=== PATIENT | female | born 1950 | race Caucasian/White ===

== ENCOUNTER 2017-12-31 18:25 | Observation (INO) | payer MEDICARE ==
[~2017-12-31] VITALS: Ht 172.7 cm; Wt 100.0 kg
[2017-12-31 18:37] VITALS: BP 157/83; PULSE 83; TEMP 98.4; O2SAT 97
--- NOTE | 2017-12-31 22:23 | PD ---
HPI Chief Complaint: Injury Time Seen by Provider: 22:15 Travel History International Travel<30 days: No Contact w/Intl Traveler<30days: No Traveled to known affect area: No History of Present Illness HPI 59-year-old female presents with her for evaluation of left knee injury. Symptom onset 3 PM. She reports that she twisted her left knee in [place]uddle at the beach. She fell and landed on her left knee. Pain is throbbing, constant, worse with movement. She has had difficulty putting weight on her left leg. No alleviating factors. She reports that she felt a tearing sensation when she fell. She denies any other injuries and she has no other complaints at this time. [facility] Social History Alcohol Use: Yes Tobacco Use: No Allergies-Medications (Allergen,Severity, Reaction): Coded Allergies: KEV Inhibitors (Verified Allergy, Unknown, 01/01/18) Penicillins (Verified Allergy, Unknown, 12/31/17) erythromycin base (Verified Allergy, Unknown, 01/01/18) iodine (Verified Allergy, Unknown, 12/31/17) Reported Meds & Prescriptions Reported Meds & Active Scripts Active Walker with Front Wheels (Device) 1 Mis Mis Ea .XX DIRECTED Ibuprofen 800 Mg Tab 800 Mg PO Q6HR PRN Tylenol-Codeine #3 (Acetaminophen-Codeine) 300-30 mg Tab 1 Tab PO Q6H PRN Reported Diltiazem (Diltiazem HCl) 120 Mg Tab 120 Mg PO DAILY Lasix (Furosemide) 20 Mg Tab 20 Mg PO DAILY Multiple Vitamin 1 Tab 1 Tab PO DAILY Atorvastatin (Atorvastatin Calcium) 80 Mg Tab 80 Mg PO HS Aspirin 81 Mg Chew 162 Mg CHEW ONCE Effexor (Venlafaxine HCl) 100 Mg Tab 150 Mg PO Q12H [Atarax] 25 Mg PO TID Review of Systems General / Constitutional: No: Fever, Chills Musculoskeletal: Positive: Limited ROM, Pain Skin: Positive Other (Denies open wounds) Neurologic: No: Paresthesia Physical Exam Narrative GENERAL: Well-developed well-nourished female no acute distress SKIN: Warm and dry. CARDIOVASCULAR: Regular rate and rhythm. No murmur appreciated. RESPIRATORY: No accessory muscle use. Clear to auscultation. Breath sounds equal bilaterally. MUSCULOSKELETAL: There appears to be a left knee joint effusion. There is generalized tenderness to palpation the left knee. The patient is holding her left knee in extension. There is pain with passive and active attempts at flexion of the left knee. Distal pulses and sensation are intact. NEUROLOGICAL: Awake and alert. No obvious cranial nerve deficits. Motor grossly within normal limits. Normal speech. Data Data Last Documented VS Vital Signs Date Time Temp Pulse Resp B/P (MAP) Pulse Ox O2 Delivery O2 Flow Rate FiO2 01/01/18 01:36 99 Nasal Cannula 2.00 01/01/18 01:22 62 20 156/80 (105) 12/31/17 18:37 98.4 Orders Orders Knee, Complete (4vws) (12/31/17 ) Ice/Cold Pack (12/31/17 22:20) Acetamin-Codeine 300-30 Mg (Tylenol-Code (12/31/17 22:30) Ibuprofen (Motrin) (12/31/17 22:30) Ct Knee W/O Contrast (12/31/17 ) Radiology Film Requests (01/01/18 ) Splint Or Brace Apply/Monitor (01/01/18 00:08) Radiology Film Requests (01/01/18 ) Immobilizer Knee 20 Inch (01/01/18 ) Orphenadrine Inj (Norflex Inj) (01/01/18 00:30) Electrocardiogram (01/01/18 00:38) Basic Metabolic Panel (Bmp) (01/01/18 00:38) Ckmb (Isoenzyme) Profile (01/01/18 00:38) Complete Blood Count With Diff (01/01/18 00:38) Magnesium (Mg) (01/01/18 00:38) Prothrombin Time / Inr (Pt) (01/01/18 00:38) Act Partial Throm Time (Ptt) (01/01/18 00:38) Troponin I (01/01/18 00:38) Ecg Monitoring (01/01/18 00:38) Bilateral Bp Monitoring (01/01/18 00:38) Iv Access Insert/Monitor (01/01/18 00:38) Oximetry (01/01/18 00:38) Oxygen Administration (01/01/18 00:38) Aspirin (Aspirin) (01/01/18 00:45) Morphine Inj (Morphine Inj) (01/01/18 00:45) Sodium Chloride 0.9% Flush (Ns Flush) (01/01/18 00:45) Nitroglycerin Sl (Nitrostat Sl) (01/01/18 00:45) Ondansetron Odt (Zofran Odt) (01/01/18 00:45) Chest, Single Ap (01/01/18 ) Sodium Chlorid 0.9% 500 Ml Inj (Ns 500 M (01/01/18 01:15) Admit Order (Ed Use Only) (01/01/18 01:45) Activity Bed Rest With Brp (01/01/18 01:45) Vital Signs (Adult) Q4H (01/01/18 01:45) Cardiac Rhythm .As Directed (01/01/18 01:45) Notify Dr: Other .PRN (01/01/18 01:45) Notify Parameters (01/01/18 01:45) Resp Oxygen Nasal Cannula (01/01/18 ) Ckmb (Isoenzyme) Profile (01/01/18 03:45) Ckmb (Isoenzyme) Profile (01/01/18 06:45) Troponin I (01/01/18 03:45) Troponin I (01/01/18 06:45) Electrocardiogram (01/01/18 03:45) Electrocardiogram (01/01/18 06:45) ^ Obtain (01/01/18 01:45) Sodium Chloride 0.9% Flush (Ns Flush) (01/01/18 01:45) Sodium Chloride 0.9% Flush (Ns Flush) (01/01/18 09:00) Npo After Midnight W/ Po Meds (01/01/18 Breakfast) Nitroglycerin 2% Oint (Nitroglycerin 2% (01/01/18 01:45) Labs Laboratory Tests Test 01/01/18 00:45 White Blood Count 8.8 TH/MM3 Red Blood Count 4.11 MIL/MM3 Hemoglobin 12.7 GM/DL Hematocrit 37.6 % Mean Corpuscular Volume 91.6 FL Mean Corpuscular Hemoglobin 30.9 PG Mean Corpuscular Hemoglobin Concent 33.7 % Red Cell Distribution Width 17.5 % Platelet Count 476 TH/MM3 Mean Platelet Volume 7.2 FL Neutrophils (%) (Auto) 70.6 % Lymphocytes (%) (Auto) 21.3 % Monocytes (%) (Auto) 5.8 % Eosinophils (%) (Auto) 1.8 % Basophils (%) (Auto) 0.5 % Neutrophils # (Auto) 6.2 TH/MM3 Lymphocytes # (Auto) 1.9 TH/MM3 Monocytes # (Auto) 0.5 TH/MM3 Eosinophils # (Auto) 0.2 TH/MM3 Basophils # (Auto) 0.0 TH/MM3 CBC Comment DIFF FINAL Differential Comment Prothrombin Time 11.5 SEC Prothromb Time International Ratio 1.1 RATIO Activated Partial Thromboplast Time 27.5 SEC Blood Urea Nitrogen 15 MG/DL Creatinine 0.79 MG/DL Random Glucose 103 MG/DL Calcium Level 8.9 MG/DL Magnesium Level 2.0 MG/DL Sodium Level 142 MEQ/L Potassium Level 3.7 MEQ/L Chloride Level 105 MEQ/L Carbon Dioxide Level 27.9 MEQ/L Anion Gap 9 MEQ/L Estimat Glomerular Filtration Rate 72 ML/MIN Total Creatine Kinase 66 U/L Troponin I LESS THAN 0.02 NG/ML MDM Medical Decision Making Medical Screen Exam Complete: Yes Emergency Medical Condition: Yes Medical Record Reviewed: Yes Differential Diagnosis Ligamentous disruption, meniscal disruption, tibial plateau fracture, proximal fibular fracture, contusion, patellar dislocation Narrative Course 67-year-old female presents with left knee pain after twisting her left knee and falling at the beach today. X-ray imaging will be obtained. Ice pack provided. The patient will be given Tylenol with codeine and ibuprofen. X-ray imaging suspicious for medial tibial plateau fracture. Therefore CT imaging was obtained revealing CONCLUSION: 1. Nondisplaced fracture of the medial aspect of the medial tibial plateau. Patient was given a copy of her x-ray and CT on a CD. She was also given the radiology reports. She was placed in a knee immobilizer. She is declining crutches and would prefer a walker. She will be given a prescription for a walker. She has an orthopedic physician that she follows with in [place], she will follow-up with him in the next week. 0035: Just before discharge the patient began developing substernal chest pain. She describes it as a pressure which is constant, nonradiating, associated with diaphoresis, nausea, dyspnea. No personal history of coronary disease. She does have a history of lupus, hypertension, hyperlipidemia, family history of MA on the father's side at age 53. A 12 EKG was immediately obtained. The patient was given nitroglycerin, aspirin, morphine, placed on ECG monitoring pulse oximetry. Lab work, chest x-ray been ordered. The patient reports improvement in her pain with nitroglycerin. Her initial lab work is reassuring. Her EKG revealed sinus rhythm with some T-wave inversions in the inferior leads. At this point time the plan is to admit her into the chest pain center for serial cardiac enzymes and rule out purposes. She is agreeable. Diagnosis Primary Impression: Tibial plateau fracture, left Additional Impression: Chest pain Admitting Information Admitting Physician Requests: Observation Referrals: Orthopedist Med/Other Pt SpecificInfo: Prescription(s) given, Orthopedic Instructions Scripts Walker with Front Wheels (Walker with Front Wheels) 1 Mis Mis EA .XX DIRECTED, #1 0 Refills Prov: Sara Evans DO 12/31/17 Ibuprofen (Ibuprofen) 800 Mg Tab 800 MG PO Q6HR Y for PAIN, #40 TAB 0 Refills Prov: Sara Evans DO 12/31/17 Acetaminophen-Codeine (Tylenol-Codeine #3) 300-30 mg Tab 1 TAB PO Q6H Y for PAIN, #12 TAB 0 Refills Prov: Sara Evans DO 12/31/17 Disposition: 01 DISCHARGE HOME Condition: Stable Jhony Bojorquez Dec 31, 2017 22:23
[2017-12-31] MEDS ORDERED: TYLETAB34 PO (22:24)
[2017-12-31] MEDS ORDERED: WALKER WHEELS/F1 MIS (22:24)
[2017-12-31] MEDS ORDERED: IBUP1TAB7 PO (22:24)
[2017-12-31] MEDS ORDERED: IBUPROFEN 800 MG TAB PO ONE (22:30)
[2017-12-31] MEDS ORDERED: ACETAMINOPHEN/CODEINE 300 MG/30 MG TAB PO ONE (22:30)
--- NOTE | 2017-12-31 23:02 | RADRPT ---
EXAM DATE: 12/31/2017 10:55 PM EDT AGE/SEX: 67 years / Female INDICATIONS: Left knee pain post fall today CLINICAL DATA: This is the patient's initial encounter. Patient reports that signs and symptoms have been present for 1 day and indicates a pain score of 8/10. MEDICAL/SURGICAL HISTORY: None. None. COMPARISON: No prior exams available for comparison. FINDINGS: There is a lipohemarthrosis suggesting a fracture at the knee. Questionable nondisplaced tibial plate au fracture noted medially. No other fractures are seen. CONCLUSION: 1. Lipohemarthrosis with questionable hairline nondisplaced fracture medial tibial plateau. Electronically signed by: Brien Moreno MD 12/31/2017 11:01 PM EDT
[2018-01-01] VITALS (7 sets, daily range): BP systolic 124–156; BP diastolic 67–80; PULSE 61–94; RESP 17–20; TEMP 96.8–98; O2SAT 90–99
--- NOTE | 2018-01-01 00:05 | RADRPT ---
EXAM DATE: 12/31/2017 11:48 PM EDT AGE/SEX: 67 years / Female INDICATIONS: Trauma, fall forward. Abnormal radiograph. CLINICAL DATA: This is the patient's initial encounter. Patient reports that signs and symptoms have been present for 1 day and indicates a pain score of 7/10. MEDICAL/SURGICAL HISTORY: None. . RADIATION DOSE: 16.57 CTDI (mGy) COMPARISON: No prior exams available for comparison. TECHNIQUE: Multiple contiguous axial images were acquired using a multirow detector CT scanner witho ut contrast. Multiplanar reconstruction was performed in the sagittal and coronal planes. Using aut omated exposure control and adjustment of the mA and/or kV according to patient size, radiation dose was kept as low as reasonably achievable to obtain optimal diagnostic quality images. FINDINGS: Bones: Nondisplaced fracture of the medial aspect of the medial tibial plateau. No other fractures. Mild degenerative changes. Joints: No significant arthropathy or bony hypertrophy is seen. Soft Tissues: No soft tissue mass is seen. Other: No foreign bodies seen. Likely hemarthrosis. CONCLUSION: 1. Nondisplaced fracture of the medial aspect of the medial tibial plateau. Electronically signed by: Anuj Shanks MD 01/01/2018 12:03 AM EDT
[2018-01-01] MEDS ORDERED: ORPHENADRINE INJ 60 MG/2 ML AMP IM ONE (00:30)
[2018-01-01] MEDS ORDERED: ASPIRIN 325 MG TAB PO ONE (00:45)
[2018-01-01] MEDS ORDERED: SODIUM CHLORIDE 0.9% FLUSH 10 ML FLUSH IVF PRN (00:45)
[2018-01-01] MEDS ORDERED: ONDANSETRON ODT 4 MG TAB PO ONE (00:45)
[2018-01-01] MEDS ORDERED: MORPHINE SULFATE 4 MG/ML INJ IV PUSH ONE (00:45)
[2018-01-01] MEDS: NITROGLYCERIN 0.4 MG SL 25 TABS/BTL SL SCH ×3 (00:47→01:02)
--- NOTE | 2018-01-01 01:07 | RADRPT ---
EXAM DATE: 01/01/2018 1:01 AM EDT AGE/SEX: 67 years / Female INDICATIONS: Chest pain radiating to the back. CLINICAL DATA: This is the patient's initial encounter. Patient reports that signs and symptoms have been present for 1 day and indicates a pain score of 5/10. MEDICAL/SURGICAL HISTORY: None. None. COMPARISON: No prior exams available for comparison. FINDINGS: A single AP view of the chest demonstrates the lungs to be symmetrically aerated without evidence of mass, infiltrate or effusion. Moderate-sized hiatal hernia. The cardiomediastinal contours are unrema rkable. Osseous structures are intact. CONCLUSION: No acute cardiopulmonary disease. Hiatal hernia. Electronically signed by: Anuj Shanks MD 01/01/2018 1:06 AM EDT
[2018-01-01 01:08] LABS: AUTOMATED NEUTROPHIL # 6.2 TH/MM3 (1.8-7.7); BASOPHIL % 0.5 % (0.0-2.0); EOSINOPHIL # 0.2 TH/MM3 (0-0.4); EOSINOPHIL % 1.8 % (0.0-4.0); HEMATOCRIT 37.6 % (35.0-46.0); HEMOGLOBIN 12.7 GM/DL (11.6-15.3); LYMPH % 21.3 % (9.0-44.0); LYMPHOCYTE # 1.9 TH/MM3 (1.0-4.8); MEAN CELL VOLUME 91.6 FL (80.0-100.0); MEAN CORPUSCULAR HEMOGLOBIN 30.9 PG (27.0-34.0); MEAN CORPUSCULAR HGB CONC 33.7 % (32.0-36.0); MEAN PLATELET VOLUME 7.2 FL (7.0-11.0); MONO % 5.8 % (0.0-8.0); MONOCYTE # 0.5 TH/MM3 (0-0.9); NEUT % 70.6 % (16.0-70.0); PLATELET COUNT 476 TH/MM3 (150-450); RED BLOOD COUNT 4.11 MIL/MM3 (4.00-5.30); RED CELL DISTRIBUTION WIDTH 17.5 % (11.6-17.2); WHITE BLOOD COUNT 8.8 TH/MM3 (4.0-11.0)
[2018-01-01 01:12] LABS: INTERNATIONAL NORMALIZED RATIO 1.1 RATIO; PROTHROMBIN TIME - PATIENT 11.5 SEC (9.8-11.6)
[2018-01-01] MEDS ORDERED: SODIUM CHLORID 0.9% 500 ML INJ 500 ML IV ONE (01:15)
[2018-01-01 01:33] LABS: BICARBONATE 27.9 MEQ/L (21.0-32.0); BLOOD UREA NITROGEN 15 MG/DL (7-18); CALCIUM 8.9 MG/DL (8.5-10.1); CHLORIDE 105 MEQ/L (98-107); CREATININE 0.79 MG/DL (0.50-1.00); GLOMERULAR FILTRATION RATE 72 ML/MIN (>89); GLUCOSE,RANDOM 103 MG/DL (74-106); SODIUM (NA) 142 MEQ/L (136-145)
[2018-01-01] MEDS ORDERED: VENL100T PO (01:35)
[2018-01-01] MEDS ORDERED: MULTTAB67 PO (01:35)
[2018-01-01] MEDS ORDERED: ATOR80TA45 PO (01:35)
[2018-01-01] MEDS ORDERED: ASPI-516 CHEW (01:35)
[2018-01-01] MEDS ORDERED: ATARAX PO (01:35)
[2018-01-01] MEDS ORDERED: FURO1TAB62 PO (01:35)
[2018-01-01] MEDS ORDERED: DILT120T PO (01:35)
[2018-01-01 01:37] LABS: TROPONIN I LESS THAN 0.02 NG/ML (0.02-0.05)
[2018-01-01] MEDS ORDERED: NITROGLYCERIN 2% OINT 1 GM PACKET TOP ONE (01:45)
[2018-01-01] MEDS ORDERED: SODIUM CHLORIDE 0.9% FLUSH 10 ML FLUSH IV FLUSH PRN (01:45)
[2018-01-01 04:09] LABS: TROPONIN I LESS THAN 0.02 NG/ML (0.02-0.05)
[2018-01-01 07:37] LABS: TROPONIN I LESS THAN 0.02 NG/ML (0.02-0.05)
[2018-01-01] MEDS ORDERED: NITROGLYCERIN 0.4 MG SL 25 TABS/BTL SL PRN (08:15)
[2018-01-01] MEDS ORDERED: ACETAMINOPHEN 500 MG CPLT PO PRN (08:15)
[2018-01-01] MEDS ORDERED: ONDANSETRON ODT 4 MG TAB PO PRN (08:15)
[2018-01-01] MEDS ORDERED: SODIUM CHLORIDE 0.9% FLUSH 10 ML FLUSH IV FLUSH SCH (09:00)
[2018-01-01] MEDS ORDERED: ASPIRIN 325 MG TAB PO SCH (09:00)
[2018-01-01] MEDS: ACETAMINOPHEN/CODEINE 300 MG/30 MG TAB PO PRN ×2 (09:23→17:59)
--- NOTE | 2018-01-01 12:18 | HHI.HP ---
HPI Primary Care Physician Non-Staff Chief Complaint Chest pain History of Present Illness 67-year-old female with history of lupus, hypertension, lipidemia, and sleep apnea presents emergency room for further evaluation of chest pain. Onset yesterday evening prior to discharge. Originally came to ER s/p falling at the beach. Diagnosed with a nondisplaced, hairline fracture of left medial tibia. While begin discharged developed generalized chest discomfort. Characterized as a burning, pressure. Radiation to right upper back. Severity 8/10. Associated symptoms included nausea, dyspnea, and diaphoresis. No particular movement or position made pain better or worse. Did not hurt to take a deep breath. Duration unknown, stating "maybe one hour." No precipitating factors. Relieving factors after third dose of nitroglycerin, reporting relief quickly after third dose. No further chest discomfort overnight. Denies similar pain in the past. She is visiting from [place], [place]. Does not remember events prior to falling, only remembers waking up on the ground. Review of Systems General: No fatigue, weakness, fever, chills, or recent illness. Has been under general state of health, recent lumbar surgery April 2017 states she has recovered well and continues working with PT. HEENT: No AWAD, no vision changes, no nasal congestion or drainage, no dysphasia CV: As stated above. No further chest discomfort since initial episode. RESP: No SOB, cough, wheeze, or recent URI. GI: No nausea, vomiting, or bowel changes. : No dysuria, urgency, frequency EXT: No lower leg edema, no paraesthesias MS: Current left knee injury status post fall 12/31/17, instructed to follow with orthopedist once returning home, brace provided in ER. NEURO: No dizziness, LOC, motor/sensory deficits PSYCH: No anxiety, depression, or suicidal ideation SKIN: No rashes, no concerning lesions Past Family Social History Allergies: Coded Allergies: KEV Inhibitors (Verified Allergy, Unknown, 01/01/18) Penicillins (Verified Allergy, Unknown, 12/31/17) erythromycin base (Verified Allergy, Unknown, 01/01/18) iodine (Verified Allergy, Unknown, 12/31/17) Past Medical History Hypertension, hyperlipidemia, sleep apnea (uses CPAP), lupus, Rene's esophagus, osteopenia, cervical dysplasia Past Surgical History Lumbar surgery (April 2017), partial hysterectomy, splenectomy Reported Medications Reported Meds & Active Scripts Active Walker with Front Wheels (Device) 1 Mis Mis Ea .XX DIRECTED Ibuprofen 800 Mg Tab 800 Mg PO Q6HR PRN Tylenol-Codeine #3 (Acetaminophen-Codeine) 300-30 mg Tab 1 Tab PO Q6H PRN Reported Diltiazem (Diltiazem HCl) 120 Mg Tab 120 Mg PO DAILY Lasix (Furosemide) 20 Mg Tab 20 Mg PO DAILY Multiple Vitamin 1 Tab 1 Tab PO DAILY Atorvastatin (Atorvastatin Calcium) 80 Mg Tab 80 Mg PO HS Aspirin 81 Mg Chew 162 Mg CHEW ONCE Effexor (Venlafaxine HCl) 100 Mg Tab 150 Mg PO Q12H [Atarax] 25 Mg PO TID Active Ordered Medications Current Medications Medications (Trade) Dose Ordered Sig/Cecilia Route Start Time Stop Time Status Last Admin (NS Flush) 2 ml UNSCH PRN IVF 01/01/18 00:45 (NS Flush) 2 ml UNSCH PRN IV FLUSH 01/01/18 01:45 (NS Flush) 2 ml BID IV FLUSH 01/01/18 09:00 (Tylenol) 500 mg Q4H PRN PO 01/01/18 08:15 (Nitrostat Sl) 0.4 mg Q5M PRN SL 01/01/18 08:15 (Aspirin) 325 mg DAILY PO 01/01/18 09:00 01/01/18 09:23 (Zofran Odt) 4 mg Q6H PRN PO 01/01/18 08:15 (Tylenol-Codeine #3) 1 tab Q6H PRN PO 01/01/18 08:15 01/01/18 09:23 Family History Father at age 53 from [place]. Sister age 52 from [place]. Mother age 53 head injury. Social History No known coronary artery disease or diabetes. Known hypertension hyperlipidemia. Former smoker quitting greater than 20 years ago. . 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 Visiting from [facility]. Past cardiac testing Chemical stress test 2 years ago reported to be unremarkable. Physical Exam Vital Signs Vital Signs Date Time Temp Pulse Resp B/P (MAP) Pulse Ox O2 Delivery O2 Flow Rate FiO2 01/01/18 08:00 98.0 67 17 135/79 (97) 96 01/01/18 02:42 96.8 61 18 124/67 (86) 99 01/01/18 02:24 01/01/18 01:50 99 Nasal Cannula 2.00 01/01/18 01:36 99 Nasal Cannula 2.00 01/01/18 01:22 62 20 156/80 (105) 90 Nasal Cannula 2.00 12/31/17 18:37 98.4 83 157/83 (107) 97 Physical Exam GENERAL: Alert WN, WD, NAD, pleasant, obese, female HEAD: NC, AT CV: RRR, 2/6 systolic murmur, no rub, gallop, or JVD, S1-S2 no S3-S4. Chest wall nontender with palpation. RESP: Clear lungs throughout bilateral, no crackles, wheeze, rhonchi, symmetrical chest rise, nonlabored, able to speak in full sentences ABD: Soft, NT, ND, no masses, positive bowel tones EXT: Pulses +2x4, trace bilateral lower extremity edema, left knee +3 edema MS: Normal tone x4 extremities, no obvious deformities, ice pack on left knee upon entering room, full range of motion limited due to left leg pain NEURO: CN II through CN XII grossly intact, motor strength 5/5 PSYCH: A+O -3, pleasant affect, appropriate speech, mood, insight and judgment SKIN: Normal turgor, normal texture, no lesions, no rashes Laboratory Laboratory Tests Test 01/01/18 00:45 01/01/18 03:37 01/01/18 06:30 White Blood Count 8.8 Red Blood Count 4.11 Hemoglobin 12.7 Hematocrit 37.6 Mean Corpuscular Volume 91.6 Mean Corpuscular Hemoglobin 30.9 Mean Corpuscular Hemoglobin Concent 33.7 Red Cell Distribution Width 17.5 Platelet Count 476 Mean Platelet Volume 7.2 Neutrophils (%) (Auto) 70.6 Lymphocytes (%) (Auto) 21.3 Monocytes (%) (Auto) 5.8 Eosinophils (%) (Auto) 1.8 Basophils (%) (Auto) 0.5 Neutrophils # (Auto) 6.2 Lymphocytes # (Auto) 1.9 Monocytes # (Auto) 0.5 Eosinophils # (Auto) 0.2 Basophils # (Auto) 0.0 CBC Comment DIFF FINAL Differential Comment Prothrombin Time 11.5 Prothromb Time International Ratio 1.1 Activated Partial Thromboplast Time 27.5 Blood Urea Nitrogen 15 Creatinine 0.79 Random Glucose 103 Calcium Level 8.9 Magnesium Level 2.0 Sodium Level 142 Potassium Level 3.7 Chloride Level 105 Carbon Dioxide Level 27.9 Anion Gap 9 Estimat Glomerular Filtration Rate 72 Total Creatine Kinase 66 54 50 Troponin I LESS THAN 0.02 LESS THAN 0.02 LESS THAN 0.02 Result Diagram: 01/01/18 0045 01/01/18 0045 Imaging Last 48 hours Impressions Chest X-Ray 01/01/18 0000 Signed Impressions: CONCLUSION: No acute cardiopulmonary disease. Hiatal hernia. Lower Extremity CT 12/31/17 0000 Signed Impressions: CONCLUSION: 1. Nondisplaced fracture of the medial aspect of the medial tibial plateau. Knee X-Ray 12/31/17 0000 Signed Impressions: CONCLUSION: 1. Lipohemarthrosis with questionable hairline nondisplaced fracture medial ti bial plateau. Course EKG Normal sinus rhythm, left axis deviation, nonspecific ST changes Caprini VTE Risk Assessment Caprini VTE Risk Assessment: Mod/High Risk (score >= 2) Caprini Risk Assessment Model Point Value = 1 Point Value = 2 Point Value = 3 Point Value = 5 Age 41-60 Minor surgery BMI > 25 kg/m2 Swollen legs Varicose veins or History of unexplained or recurrent spontaneous Oral contraceptives or hormone replacement Sepsis (< 1 month) Serious lung disease, including pneumonia (< 1 month) Abnormal pulmonary function Acute myocardial infarction Congestive heart failure (< 1 month) History of inflammatory bowel disease Medical patient at bed rest Age 61-74 Arthroscopic surgery Major open surgery (> 45 min) Laparoscopic surgery (> 45 min) Malignancy Confined to bed (> 72 hours) Immobilizing plaster cast Central venous access Age >= 75 History of VTE Family history of VTE Factor V Leiden Prothrombin [id number] Lupus anticoagulant Anticardiolipin antibodies Elevated serum homocysteine Heparin-induced thrombocytopenia Other congenital or acquired thrombophilia Stroke (< 1 month) Elective arthroplasty Hip, pelvis, or leg fracture Acute spinal cord injury (< 1 month) Prophylaxis Regimen Total Risk Factor Score Risk Level Prophylaxis Regimen 0-1 Low Early ambulation 2 Moderate Order ONE of the following: *Sequential Compression Device (SCD) *Heparin 5000 units SQ BID 3-4 Higher Order ONE of the following medications: *Heparin 5000 units SQ TID *Enoxaparin/Lovenox 40 mg SQ daily (WT < 150 kg, CrCl > 30 mL/min) *Enoxaparin/Lovenox 30 mg SQ daily (WT < 150 kg, CrCl > 10-29 mL/min) *Enoxaparin/Lovenox 30 mg SQ BID (WT < 150 kg, CrCl > 30 mL/min) AND/OR *Sequential Compression Device (SCD) 5 or more Highest Order ONE of the following medications: *Heparin 5000 units SQ TID (Preferred with Epidurals) *Enoxaparin/Lovenox 40 mg SQ daily (WT < 150 kg, CrCl > 30 mL/min) *Enoxaparin/Lovenox 30 mg SQ daily (WT < 150 kg, CrCl > 10-29 mL/min) *Enoxaparin/Lovenox 30 mg SQ BID (WT < 150 kg, CrCl > 30 mL/min) AND *Sequential Compression Device (SCD) Assessment and Plan Assessment and Plan #1 Chest pain-admitted to chest pain center. ACS ruled out with 3 sets of EKGs and cardiac enzymes. Monitor on telemetry overnight. Will be seen and evaluated by Dr. Guzman Aiken. Discussed likely will complete chemical stress test prior to discharge due to risk factors. This will be determined after evaluation by marking room supervisor. Patient is agreeable to plan of care and verbalizes understanding. Possible syncopal episode, continue to monitor on telemetry. #2 History of hypertension-continue diltiazem #3 History of hyperlipidemia-continue atorvastatin #4 History of depression-continue Effexor #5 Recent left medial tibia nondisplaced hairline fracture-continue Tylenol with codeine every 6 hours as needed for pain, upon discharge follow up with PCP and orthopedist, soft leg brace previously provided by Ayala Pierre Jan 01, 2018 12:18
[2018-01-01] MEDS ORDERED: MULTIVITAMIN TAB PO SCH (12:30)
--- NOTE | 2018-01-01 12:36 | EKG ---
Date Performed: 01/01/2018 Time Performed: 00:39:56 PTAGE: 67 years EKG: Sinus rhythm MARKED LEFT AXIS DEVIATION INCOMPLETE RIGHT BUNDLE BRANCH BLOCK ABNORMAL ECG NO PREVIOUS TRACING DOCTOR: Guzman Aiken Interpretating Date/Time 01/01/2018 12:35:23
--- NOTE | 2018-01-01 12:48 | EKG ---
Date Performed: 01/01/2018 Time Performed: 03:48:58 PTAGE: 67 years EKG: Sinus rhythm WITH OCCASIONAL SUPRAVENTRICULAR PREMATURE COMPLEXES MARKED LEFT AXIS DEVIATION INCOMPLETE RIGHT BUN DLE BRANCH BLOCK ABNORMAL ECG PREVIOUS TRACING ;01/01/2018 @00.39 Since the previous tracing, no significant change noted DOCTOR: Guzman Aiken Interpretating Date/Time 01/01/2018 12:48:27
--- NOTE | 2018-01-01 12:48 | EKG ---
Date Performed: 01/01/2018 Time Performed: 06:36:34 PTAGE: 67 years EKG: Sinus rhythm MARKED LEFT AXIS DEVIATION INCOMPLETE RIGHT BUNDLE BRANCH BLOCK ABNORMAL ECG PREVIOUS TRACING : 01/01/2018 03.48 Since the previous tracing, no significant change noted DOCTOR: Guzman Aiken Interpretating Date/Time 01/01/2018 12:47:56
--- NOTE | 2018-01-01 13:10 | PD.CARD.PN ---
Subjective Subjective Remarks 67-year-old lady who [place] the [place] and was walking to the water through a small tidal pool when she fell. She remembers seeing the beach tilt a bit, she remembers the impact on her knee, and was not immediately aware that she was on the same. Although she is not sure why she fell she appears to have been conscious throughout the fall. She subsequently developed chest pain after being evaluated in the emergency room. This pain involved her anterior chest but also her back in is very consistent with a twisting injury and impact on her side. I have reviewed the patient with nurse practitioner, I have reviewed the documentation, I have personally seen and evaluated the patient. Plan was determined including a nuclear stress test prior to discharge Objective Medications Current Medications Medications (Trade) Dose Ordered Sig/Cecilia Route Start Time Stop Time Status Last Admin (NS Flush) 2 ml UNSCH PRN IVF 01/01/18 00:45 (NS Flush) 2 ml UNSCH PRN IV FLUSH 01/01/18 01:45 (NS Flush) 2 ml BID IV FLUSH 01/01/18 09:00 (Tylenol) 500 mg Q4H PRN PO 01/01/18 08:15 (Nitrostat Sl) 0.4 mg Q5M PRN SL 01/01/18 08:15 (Aspirin) 325 mg DAILY PO 01/01/18 09:00 01/01/18 09:23 (Zofran Odt) 4 mg Q6H PRN PO 01/01/18 08:15 (Tylenol-Codeine #3) 1 tab Q6H PRN PO 01/01/18 08:15 01/01/18 09:23 (Lipitor) 80 mg HS PO 01/01/18 21:00 (Effexor Xr) 150 mg Q12H PO 01/01/18 21:00 (Cardizem Cd) 120 mg DAILY PO 01/02/18 09:00 (Theragran) 1 tab DAILY PO 01/01/18 12:30 Vital Signs / I&O Vital Signs Date Time Temp Pulse Resp B/P (MAP) Pulse Ox O2 Delivery O2 Flow Rate FiO2 01/01/18 12:00 98.0 76 18 130/70 (90) 98 01/01/18 08:00 98.0 67 17 135/79 (97) 96 01/01/18 02:42 96.8 61 18 124/67 (86) 99 01/01/18 02:24 01/01/18 01:50 99 Nasal Cannula 2.00 01/01/18 01:36 99 Nasal Cannula 2.00 01/01/18 01:22 62 20 156/80 (105) 90 Nasal Cannula 2.00 12/31/17 18:37 98.4 83 157/83 (107) 97 I/O 12/31/17 12/31/17 12/31/17 01/01/18 01/01/18 01/01/18 06:59 14:59 22:59 06:59 14:59 22:59 Intake Total 500 ml Balance 500 ml Intake IV Total 500 ml Physical Exam Very obese pleasant lady wearing dark glasses due to recent cataract surgery. Neck supple no JVD masses nodes or bruits carotids are intact Cardiovascular reveals a regular rhythm with no gallops rubs or murmurs but heart sounds are somewhat distant due to her obesity. Laboratory Laboratory Tests Test 01/01/18 00:45 01/01/18 03:37 01/01/18 06:30 White Blood Count 8.8 TH/MM3 Red Blood Count 4.11 MIL/MM3 Hemoglobin 12.7 GM/DL Hematocrit 37.6 % Mean Corpuscular Volume 91.6 FL Mean Corpuscular Hemoglobin 30.9 PG Mean Corpuscular Hemoglobin Concent 33.7 % Red Cell Distribution Width 17.5 % Platelet Count 476 TH/MM3 Mean Platelet Volume 7.2 FL Neutrophils (%) (Auto) 70.6 % Lymphocytes (%) (Auto) 21.3 % Monocytes (%) (Auto) 5.8 % Eosinophils (%) (Auto) 1.8 % Basophils (%) (Auto) 0.5 % Neutrophils # (Auto) 6.2 TH/MM3 Lymphocytes # (Auto) 1.9 TH/MM3 Monocytes # (Auto) 0.5 TH/MM3 Eosinophils # (Auto) 0.2 TH/MM3 Basophils # (Auto) 0.0 TH/MM3 CBC Comment DIFF FINAL Differential Comment Prothrombin Time 11.5 SEC Prothromb Time International Ratio 1.1 RATIO Activated Partial Thromboplast Time 27.5 SEC Blood Urea Nitrogen 15 MG/DL Creatinine 0.79 MG/DL Random Glucose 103 MG/DL Calcium Level 8.9 MG/DL Magnesium Level 2.0 MG/DL Sodium Level 142 MEQ/L Potassium Level 3.7 MEQ/L Chloride Level 105 MEQ/L Carbon Dioxide Level 27.9 MEQ/L Anion Gap 9 MEQ/L Estimat Glomerular Filtration Rate 72 ML/MIN Total Creatine Kinase 66 U/L 54 U/L 50 U/L Troponin I LESS THAN 0.02 NG/ML LESS THAN 0.02 NG/ML LESS THAN 0.02 NG/ML Imaging Last 24 hours Impressions Chest X-Ray 01/01/18 0000 Signed Impressions: CONCLUSION: No acute cardiopulmonary disease. Hiatal hernia. Assessment and Plan Assessment and Plan Although the current chest pain is unlikely cardiac in origin but more likely related to her fall because of her risk factor felt it would be appropriate to evaluate Tobyan prior to her discharge. 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 Code Status Full code Discussed Condition With Discussed with the nurse practitioner the patient and her Guzman Aiken MD Jan 01, 2018 13:10
[2018-01-01] MEDS ORDERED: REGADENOSON INJ 0.4 MG/5 ML SYR ONE (16:33)
[2018-01-01] MEDS ORDERED: WHEEMIS3 (18:34)
--- NOTE | 2018-01-01 18:48 | HHI.DCPOC ---
Discharge Care Plan Diagnosis: (1) Atypical chest pain (2) Tibial plateau fracture, left Goals to Promote Your Health * To prevent worsening of your condition and complications * To maintain your health at the optimal level Directions to Meet Your Goals Take your medications as prescribed Follow your dietary instruction Follow activity as directed Keep your appointments as scheduled Take your immunizations and boosters as scheduled If your symptoms worsen call your PCP, if no PCP go to Urgent Care Center or Emergency Room Smoking is Dangerous to Your Health. Avoid second hand smoke Call the 24-hour hour crisis hotline for domestic abuse at Ayala Martino Jan 01, 2018 18:48
--- NOTE | 2018-01-01 19:30 | RADRPT ---
EXAM DATE: 01/01/2018 6:03 PM EDT AGE/SEX: 67 years / Female INDICATIONS:Angina. . Chest pain. CLINICAL DATA: This is the patient's initial encounter. Patient reports that signs and symptoms have been present for 1 day and indicates a pain score of 0/10. MEDICAL/SURGICAL HISTORY: Hypertension. Hypercholesterolemia. Hysterectomy. Splenectomy. COMPARISON: No prior exams available for comparison. DOSE: 11.0 mCi Tc 99m Myoview at rest 34.3 mCi [id number] at stress 0.4 mg Lexiscan STRESS SYMPTOMS: Warm feeling and heart racing. EJECTION FRACTION: 59 % TECHNIQUE: The patient underwent pharmacologic stress with infusion of prescribed dose. Continuous ECG tracing was monitored during stress. Gated SPECT imaging was performed after stress and conventi onal SPECT imaging was performed at rest. The examination was performed on a SPECT/CT scanner, both attenuation and non-corrected datasets were reviewed. FINDINGS: Distribution: The maximum perfused segment at stress is in the anterolateral wall. Perfusion Study: The pattern of perfusion at stress is within normal limits. Gated Study: There are intact wall motion and wall thickening without hypokinetic or dyskinetic segm ents. The ejection fraction is calculated at 59%. RISK CATEGORY: Low (<1% Annual Motality Rate) CONCLUSION: 1. No significant reversibility to suggest ischemia. 2. Normal wall motion with ejection fraction at 59%. Electronically signed by: Brien Moreno MD 01/01/2018 7:29 PM EDT
[2018-01-01] MEDS ORDERED: ATORVASTATIN 80 MG TAB PO SCH (21:00)
[2018-01-01] MEDS ORDERED: VENLAFAXINE HCL XR 75 MG CAP PO SCH (21:00)
[2018-01-02] MEDS ORDERED: DILTIAZEM-CD 120 MG CAP ER PO SCH (09:00)
--- NOTE | 2018-01-03 15:41 | TR ---
Date Performed: 01/01/2018 Time Performed: 16:45:39 DOCTOR: Shahab León DRUG LIST: CLINICAL HISTORY: REASON FOR TEST: REASON FOR ENDING: OBSERVATION: CONCLUSION: COMMENTS: Lexiscan stress test was performed under standard four minute protocol. Radionuclide was injected one minute prior to ending the test. No electrocardiographic abormalities were present t o suggest ischemia. Nuclear imaging and interpretation are pending.
== END 2018-01-01 20:36 | disposition home or self-care (01) ==
LOC: NEPD 18:25 → NEDA 01-01 01:47 → NEPFCDU 01-01 02:33
PROVIDERS: ADMIT Internal Medicine Interventional Cardiology; ATTEND Internal Medicine Interventional Cardiology
DX: R07.89 Other chest pain (principal); S82.142A Displaced bicondylar fracture of left tibia, initial encounter for closed fracture; I10 Essential (primary) hypertension; R94.31 Abnormal electrocardiogram [ECG] [EKG]; E78.5 Hyperlipidemia, unspecified; G47.30 Sleep apnea, unspecified; K22.70 Barrett's esophagus without dysplasia; M85.80 Other specified disorders of bone density and structure, unspecified site; K44.9 Diaphragmatic hernia without obstruction or gangrene; Z87.410 Personal history of cervical dysplasia; Z87.891 Personal history of nicotine dependence; Z90.710 Acquired absence of both cervix and uterus; Z90.81 Acquired absence of spleen; W19.XXXA Unspecified fall, initial encounter; X50.1XXA Overexertion from prolonged static or awkward postures, initial encounter
CPT/HCPCS: 71045; 73564; 73700; 78452; 80048; 82550; 83735; 84484; 85025; 85610; 85730; 93005; 93017; 96374; 99285; A9502; G0378; J2270; J2785; J7040; L1830